=== PATIENT | female | born 1945 | race Caucasian/White ===

== ENCOUNTER → 2017-01-08 | Outpatient (CLI) | payer MEDICARE ==
[~2017-01-08] MED LIST: ASPI-515 PO; ASPI-621 PO; CHOL2000 PO; DIGOXIN PO; METO25TA35 PO; VIT1CAPS42 PO
== END | disposition home or self-care (01) ==
LOC: CFH 16:16
PROVIDERS: ATTEND Internal Medicine Gastroenterology
DX: R10.11 Right upper quadrant pain (principal); I49.3 Ventricular premature depolarization; M54.5 Low back pain; R07.9 Chest pain, unspecified; R11.0 Nausea; Z68.34 Body mass index [BMI] 34.0-34.9, adult
CPT/HCPCS: 76700

== ENCOUNTER → 2017-02-17 | Outpatient (CLI) | payer MEDICARE ==
[~2017-02-17] MED LIST changes: +SINCALIDE (KINEVAC) 5 MCG ONE
== END | disposition home or self-care (01) ==
LOC: PETCFH 08:18
PROVIDERS: ATTEND Physical Medicine & Rehabilitation Hospice and Palliative Medicine
DX: R11.0 Nausea (principal); R10.11 Right upper quadrant pain
CPT/HCPCS: 78227; A9537; J2805

== ENCOUNTER → 2018-01-03 | Outpatient (CLI) | payer MEDICARE ==
[~2018-01-03] MED LIST changes: -SINCALIDE (KINEVAC) 5 MCG ONE
== END | disposition home or self-care (01) ==
LOC: CFH 13:28
PROVIDERS: ATTEND Anesthesiology
DX: M48.07 Spinal stenosis, lumbosacral region (principal); M71.38 Other bursal cyst, other site; M54.16 Radiculopathy, lumbar region
CPT/HCPCS: 72148

== ENCOUNTER → 2018-11-23 | Outpatient (CLI) | payer MEDICARE ==
[~2018-11-23] MED LIST changes: -ASPI-621 PO; +ASPI81TA45 PO
== END | disposition home or self-care (01) ==
LOC: CFH 10:48
PROVIDERS: ATTEND Obstetrics & Gynecology
DX: Z12.31 Encounter for screening mammogram for malignant neoplasm of breast (principal)
CPT/HCPCS: 77067

== ENCOUNTER → 2019-01-04 | Outpatient (CLI) | payer MEDICARE | END | disposition home or self-care (01) | LOC: CFH 13:21 | PROVIDERS: ATTEND Nurse Practitioner | DX: Z13.820 Encounter for screening for osteoporosis (principal); M85.88 Other specified disorders of bone density and structure, other site | CPT/HCPCS: 77080 ==

== ENCOUNTER → 2019-11-13 | Outpatient (CLI) | payer MEDICARE ==
[~2019-11-13] MED LIST changes: +LIDOCAINE-MPF 1%, 5ML ONE
== END | disposition home or self-care (01) ==
LOC: RAD 10:59
PROVIDERS: ATTEND Nurse Practitioner Family
DX: E04.2 Nontoxic multinodular goiter (principal)
CPT/HCPCS: 10005; 88172; 88173

== ENCOUNTER 2020-10-18 12:53 | Emergency (ER) | payer MEDICARE ==
[~2020-10-18] VITALS: Ht 157.5 cm; Wt 84.1 kg
[~2020-10-18 12:53] MED LIST changes: -LIDOCAINE-MPF 1%, 5ML ONE
--- NOTE | 2020-10-18 13:14 | NUR ---
PATIENT WHEELED BACK FROM TRIAGE WITH CHIEF C/O DIZZINESS. PATIENT STATES SHE WAS GETTING A THYROID ULTRASOUND AROUND 11:15 THIS MORNING AND WHEN SHE TURNED HER HEAD TO THE LEFT THE ROOM "STARTED SPINNING AND THE LEFT SIDE OF MY FACE STARTED FEELING NUMB." PATIENT JAMES ANY OTHER NEUROLOGICAL SYMPTOMS, A&OX4. 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 Addendum: 10/18/20 at 1319 by RJ PATIENT ALSO REPORTS FEELING NAUSEATED AFTER INCIDENT AND HAD A DANIELLE. PATIENT STATES NOW SHE IS FEELING SLIGHTLY DIZZY.
--- NOTE | 2020-10-18 13:20 | NUR ---
ERMD AT BEDSIDE FOR EVALUATION.
[2020-10-18] MEDS ORDERED: MECLIZINE CHEWABLE 25 MG TAB ONE (13:39)
[2020-10-18 13:54] LABS: BASOPHILS % (AUTO) 1 % (0-1); EOSINOPHILS % (AUTO) 2 % (1-7); LYMPHOCYTES % (AUTO) 21 % (22-44); MD NO; MEAN CORPUSCULAR HGB CONC 33.3 g/dL (32.4-35.8); MONOCYTES % (AUTO) 8 % (2-9); NEUTROPHILS % (AUTO) 68 % (42-75); PLATELET COUNT 261 x10^3/uL (130-400); RED BLOOD COUNT 4.98 x10^6/uL (3.82-5.3); RED CELL DISTRIBUTION WIDTH 14.8 % (9.6-15.2)
[2020-10-18] MEDS ORDERED: MECLIZINE CHEWABLE 25 MG TAB PO PRN (14:00)
[2020-10-18 14:05] LABS: CALCIUM 9.2 mg/dL (8.5-10.1); CHLORIDE 109 mmol/L (98-107); CREATININE 0.78 mg/dL (0.55-1.02)
--- NOTE | 2020-10-18 14:05 | NUR ---
PATIENT MEDICATED PER eMAR, WARM BLANKET PROVIDED, VSS, NADN, SIDE RAILS UP X2, CALL LIGHT WITHIN REACH, WAITING FOR LAB RESULTS.
[2020-10-18 14:13] LABS: ANION GAP 4 mmol/L (5-15)
--- NOTE | 2020-10-18 15:03 | NUR ---
ERMD AT BEDSIDE TO DISCUSS POC.
--- NOTE | 2020-10-18 15:27 | NUR ---
Jaycee tyson in [facility] - 10/18/20 at 1529 by [email or web address] PATIENT TO IMAGING.
--- NOTE | 2020-10-18 15:29 | NUR ---
SPOKE WITH IMAGING, THEY ARE CLEANING A COVID ROOM AND IN THE MIDDLE OF AN ANESTHESIA CASE, THEY WILL COME GET PATIENT AFTER THEY HAVE A ROOM AVAILABLE.
--- NOTE | 2020-10-18 16:25 | NUR ---
PATIENT TO MRI.
--- NOTE | 2020-10-18 17:18 | NUR ---
PATIENT BACK FROM MRI, RESTING IN SHERI MI VSS, CALL LIGHT WITHIN REACH.
[2020-10-18 17:19] VITALS: BP 134/76
--- NOTE | 2020-10-18 17:55 | NUR ---
Patient given discharge instructions and prescription and they have confirmed that they understand the instructions, all questions answered. Patient stable and ambulatory with steady gait from ED to private vehicle with spouse.
== END 2020-10-18 17:54 | disposition home or self-care (01) ==
LOC: ED 14:20
DX: R42 Dizziness and giddiness (principal); R11.0 Nausea; R20.0 Anesthesia of skin
CPT/HCPCS: 36415; 70551; 80048; 85025; 99284

== ENCOUNTER 2021-04-07 12:14 | Emergency (ER) | payer MEDICARE ==
[~2021-04-07] VITALS: Ht 157.5 cm; Wt 72.4 kg
[~2021-04-07 12:14] MED LIST changes: -ASPI-515 PO; +ASPI-963 PO
--- NOTE | 2021-04-07 12:40 | NUR ---
meat team member note: Pt to room from lobby.
[2021-04-07 13:23] LABS: BASOPHILS % (AUTO) 1 % (0-1); EOSINOPHILS % (AUTO) 2 % (1-7); LYMPHOCYTES % (AUTO) 22 % (22-44); MEAN CORPUSCULAR HEMOGLOBIN 28.6 pg (27.0-34.8); MEAN CORPUSCULAR HGB CONC 33.9 g/dL (32.4-35.8); MEAN PLATELET VOLUME 9.1 fL (7.4-10.4); MONOCYTES % (AUTO) 11 % (2-9); NEUTROPHILS % (AUTO) 66 % (42-75); PLATELET COUNT 221 x10^3/uL (130-400); RED BLOOD COUNT 4.76 x10^6/uL (3.82-5.3); RED CELL DISTRIBUTION WIDTH 15.1 % (9.6-15.2)
[2021-04-07 13:29] LABS: ALBUMIN 3.4 g/dL (3.4-5.0); ANION GAP 8 mmol/L (5-15); CALCIUM 9.2 mg/dL (8.5-10.1); CHLORIDE 107 mmol/L (98-107); CREATININE 0.67 mg/dL (0.55-1.02)
--- NOTE | 2021-04-07 13:30 | NUR ---
LABS HAVE BEEN DRAWN. CXR IS DONE. PT AWAITING RESULTS.
[2021-04-07 13:33] LABS: TROPONIN I < 0.015 ng/mL (0.000-0.045)
[2021-04-07 14:10] VITALS: BP 125/76
--- NOTE | 2021-04-07 14:25 | NUR ---
Break RN: Patient given discharge instructions and they have confirmed that they understand the instructions. Patient ambulatory with steady gait. NAD, all questions answered appropriately, denies additional needs at this time. No personal belongings left in room after discharge.
== END 2021-04-07 14:29 | disposition home or self-care (01) ==
LOC: ED 14:20
DX: R07.2 Precordial pain (principal); M54.6 Pain in thoracic spine
CPT/HCPCS: 36415; 71045; 80048; 82040; 84484; 85025; 93005; 99285

== ENCOUNTER 2021-05-28 09:51 | Emergency (ER) | payer MEDICARE ==
[~2021-05-28] VITALS: Ht 157.5 cm; Wt 76.4 kg
--- NOTE | 2021-05-28 10:13 | NUR ---
PT PRESENTS TO ED WITH DANIELLE SINCE YESTERDAY. PT REPORTS "EVERY ASPECT OF MY LIFE HAS STRESS" PT WANTING CLARITY ON WHETHER DANIELLE STARTED HTN OR IF HTN PRODUCED DANIELLE. NAD NOTED AT THIS TIME. SIDE RAIL UP, CALL LIGHT IN REACH. BLANKET APPLIED FOR PT COMFORT.
--- NOTE | 2021-05-28 10:39 | NUR ---
PT TAKEN TO IMAGING. NAD NOTED AT THIS TIME.
[2021-05-28 11:16] VITALS: BP 131/57
--- NOTE | 2021-05-28 11:17 | NUR ---
PT RESTING WITH EYES CLOSED IN BED. NAD NOTED AT THIS TIME. AWAITING CT REPORT.
== END 2021-05-28 12:13 | disposition home or self-care (01) ==
LOC: ED 10:04
DX: R51.9 Headache, unspecified (principal); Z88.1 Allergy status to other antibiotic agents
CPT/HCPCS: 70450; 99284